=== PATIENT | male | born 1955 | race African-American/Black ===

== ENCOUNTER 2017-11-20 11:02 | Emergency (ER) | payer SELFPAY ==
[2017-11-20 11:08] VITALS: TEMP 99.1; BMI 39.3
--- NOTE | 2017-11-20 11:50 | PDOC ---
History of Present Illness - General History Source: Patient Exam Limitations: No Limitations - History of Present Illness Initial Comments: 11/20/17 12:19 The patient is a 61 year old male, with no known significant PMH, who presents to the emergency department for evaluation of high blood pressure with a systolic of 240 today at work. 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 Patient reports he had 1 tablet of Bystolic upon arrival to the ED. Patient states he does not have a PCP and has not been receiving regular medical care. The patient denies chest pain, shortness of breath, headache and dizziness. Denies fever, chills, nausea, vomit, diarrhea and constipation. Denies dysuria, frequency, urgency and hematuria. Allergies: NKDA Past surgical history: None reported Social history: None reported PCP: None reported <Xiang Monterroso - Last Filed: 11/20/17 12:19> <Lior Alford - Last Filed: 11/20/17 16:23> - General Chief Complaint: Blood Pressure Problem Stated Complaint: Blood Pressure Problem Time Seen by Provider: 11/20/17 11:11 Past History <Xiang Monterroso - Last Filed: 11/20/17 12:19> - Past Medical History COPD: No - Immunization History Immunization Up to Date: Yes - Suicide/Smoking/Psychosocial Hx Smoking History: Never smoked Hx Alcohol Use: No Drug/Substance Use Hx: No <Lior Alford - Last Filed: 11/20/17 16:23> - Past Medical History Allergies/Adverse Reactions: Allergies Allergy/AdvReac Type Severity Reaction Status Date / Time No Known Allergies Allergy Verified 11/20/17 11:40 Home Medications: Ambulatory Orders NK [No Known Home Medication] 11/20/17 Review of Systems - Review of Systems Able to Perform ROS?: Yes Comments:: 11/20/17 12:21 A complete review of 10 out of 10 review of systems is taken and is negative apart from what is previously mentioned below and in the HPI. <Xiang Monterroso - Last Filed: 11/20/17 12:19> *Physical Exam - Vital Signs Last Vital Signs Temp Pulse Resp BP Pulse Ox 99.1 F 83 18 215/107 99 11/20/17 11:05 11/20/17 11:05 11/20/17 11:05 11/20/17 11:37 11/20/17 11:37 - Physical Exam Comments: 11/20/17 12:21 Vitals: Triage vital signs reviewed General Appearance: No acute distress, well nourished, well developed Chest Wall: Nontender Cardiac: Regular rate and rhythm, no murmurs, no rubs, no gallops Lungs: Clear to auscultation bilateral, good air movement bilaterally Abdomen: Soft, nondistended, normal bowel sounds, nontender to palpation Genitourinary: Rectal: Exam deferred Extremities: Full range of motion to all extremities, no cyanosis, clubbing, or edema Skin: Warm and dry, no rashes or lesions, no rash, no petechiae Neuro: AOX3; Cranial Nerves 2-12 grossly intact, Strength intact to all extremities, Sensation intact to all extremities. Psych: Normal mood, normal affect <Xiang Monterroso - Last Filed: 11/20/17 12:19> - Vital Signs Last Vital Signs Temp Pulse Resp BP Pulse Ox 99.1 F 83 18 215/107 99 11/20/17 11:05 11/20/17 11:05 11/20/17 11:05 11/20/17 11:37 11/20/17 11:37 <Lior Alford - Last Filed: 11/20/17 16:23> Heart Score/ECG Review - ECG Impressions Comment:: 11/20/17 16:23 EKG performed that 1139 demonstrates sinus rhythm [address] elevations or T- wave inversions. Leads 3 and aVF demonstrated Q wave inferior infarct age indeterminate Interpreted by me. <Lior Alford - Last Filed: 11/20/17 16:23> ED Treatment Course - LABORATORY CBC & Chemistry Diagram: 11/20/17 11:35 11/20/17 11:35 - ADDITIONAL ORDERS Additional order review: 11/20/17 11:35 RBC 5.35 MCV 83.7 MCHC 32.9 RDW 14.9 MPV 9.4 Neutrophils % 75.6 Lymphocytes % 13.1 Monocytes % 7.0 Eosinophils % 3.8 Basophils % 0.5 <Xiang Monterroso - Last Filed: 11/20/17 12:19> - LABORATORY CBC & Chemistry Diagram: 11/20/17 11:35 11/20/17 11:35 <Lior Alford - Last Filed: 11/20/17 16:23> Medical Decision Making - Medical Decision Making 11/20/17 13:[address] Vadim past medical history was at a pre-work screening examination where his blood pressure was noted to be 240/120 was given 5 mg of by systolic and sent to the ED upon arrival to the ED systolic blood pressure still in the 200s clonidine patch applied and patient given additional 5 mg of Bystolic Patient asymptomatic no chest pain shortness of breath no headache no numbness or weakness no leg swelling EKG performed demonstrates normal sinus rhythm evidence of Q waves in leads 2 and 3 no overt evidence of LVH Chest x-ray with large heart Labs are unremarkable electrolytes and kidney function within normal limits Reevaluation 157 blood pressure now 186/102 this is a reasonable reduction in patient's blood pressure from his presenting complaint will not reduce any further Findings discussed with the doctor's office who sent him over here. We'll maintain this regimen over the weekend 10 mg bystolic daily he will follow up for reevaluation on Thursday Findings, the need for follow-up and strict return instructions discussed with patient. <Lior Alford - Last Filed: 11/20/17 16:23> *DC/Admit/Observation/Transfer - Attestations Scribe Attestion: 11/20/17 12:22 Documentation prepared by Xiang Monterroso, acting as emergency medical service manager for Lior Alford MD. <Xiang Monterroso - Last Filed: 11/20/17 12:19> - Discharge Dispostion Decision to Admit order: No <Lior Alford - Last Filed: 11/20/17 16:23> Diagnosis at time of Disposition: Hypertension Qualifiers: Hypertension type: unspecified Qualified Code(s): I10 - Essential (primary) hypertension - Discharge Dispostion Disposition: HOME Condition at time of disposition: Stable - Referrals Referrals: Reyes Cruz MD [Staff Physician] - - Patient Instructions Printed Discharge Instructions: DI for High Blood Pressure Additional Instructions: Take 10 mg or 2 tabs by systolic daily to on Thursday 2 on Thursday to on Thursday. Leave the clonidine patch in place. On Thursday follow-up at Dr. Cruz's office for walk-in appointment. His doctor's office has been made aware Return to ED for any severe headache chest pain shortness of breath any severe concerning symptoms or for any concerns.
[2017-11-20 12:00] LABS: BASO % 0.5 % (0-2.0); EOS % 3.8 % (0-4.5); HEMATOCRIT 44.8 % (35.4-49); HEMOGLOBIN 14.7 GM/dL (11.7-16.9); LYMPH % 13.1 % (8-40); MCH 27.6 pg (25.7-33.7); MCHC 32.9 g/dl (32.0-35.9); MEAN CELL VOLUME 83.7 fl (80-96); MEAN PLT VOLUME 9.4 fl (7.5-11.1); NEUT % 75.6 % (42.8-82.8); PLATELET COUNT 205 K/MM3 (134-434); RBC 5.35 M/mm3 (4.00-5.60); RDW 14.9 % (11.9-15.9); WHITE BLOOD COUNT 8.7 K/mm3 (4.0-10.0)
[2017-11-20] MEDS ORDERED: cloNIDine-TTS 0.3 MG /24 HRS PATCH.TDWK TD ONE (12:18)
[2017-11-20] MEDS ORDERED: NEBIVOLOL 5 MG TABLET (FP) PO ONE (12:19)
[2017-11-20 12:27] LABS: ALBUMIN 3.9 g/dl (3.4-5.0); ANION GAP 6 (8-16); BILIRUBIN,TOTAL 0.4 mg/dL (0.2-1.0); BLOOD UREA NITROGEN 7 mg/dL (7-18); CHLORIDE 103 mmol/L (98-107); CO2 30 mmol/L (21-32); CREATININE 0.8 mg/dL (0.7-1.3); GLUCOSE,RANDOM 102 mg/dL (74-106); POTASSIUM 4.4 mmol/L (3.5-5.1); SGOT/AST 37 U/L (15-37); SGPT/ALT 47 U/L (12-78); SODIUM 139 mmol/L (136-145); TOT PROT 7.8 g/dl (6.4-8.2)
[2017-11-20 12:41] LABS: ALK PHOS 93 U/L (45-117)
--- NOTE | 2017-11-20 14:13 | EKG ---
Test Reason : Blood Pressure : / mmHG Vent. Rate : 076 BPM Atrial Rate : 076 BPM P-R Int : 232 ms QRS Dur : 104 ms QT Int : 392 ms P-R-T Axes : 014 -28 056 degrees QTc Int : 441 ms SINUS RHYTHM WITH 1ST DEGREE A-V BLOCK POSSIBLE LEFT ATRIAL ENLARGEMENT LEFT VENTRICULAR HYPERTROPHY INFERIOR INFARCT , AGE UNDETERMINED ABNORMAL ECG NO PREVIOUS ECGS AVAILABLE Confirmed by NIRU DUQUE, TEVIN ([id number]) on 11/20/2017 2:13:44 PM Referred By: Confirmed By:TEVIN MARRUFO MD
[2017-11-20 14:30] VITALS: BP 198/102; PULSE 68
[2017-11-27] MEDS ORDERED: cloNIDine-TTS 0.3 MG /24 HRS PATCH.TDWK TD SCH (10:00)
== END 2017-11-20 14:31 | disposition home or self-care (01) ==
LOC: JER 11:02
DX: I10 Essential (primary) hypertension (principal)
CPT/HCPCS: 36415; 71045-TC-FY; 80053; 85025; 93005; 93010; 99284-25